=== PATIENT | female | born 2000 | race Caucasian/White ===

== ENCOUNTER 2023-01-09 17:09 | Inpatient (IN) | payer OTHER, SELFPAY ==
--- NOTE | ~2023-01-09 | CT_ITS ---
EXAMINATION: CT ABDOMEN AND PELVIS WITH CONTRAST CLINICAL INFORMATION: Lower abdominal pain. Concern for appendicitis. COMPARISON: None available. TECHNIQUE: Multidetector volumetric images were obtained from the superior aspect of the liver through the pubic symphysis following administration 85 mL of Omnipaque 350 intravenous contrast. Sagittal and coronal reformatted images were obtained on the technologist's workstation. Oral contrast: No This CT examination was performed using dose optimization techniques as appropriate, variously including the following: *Automated exposure control *Adjustment of mA and/or kV according to patient size (this includes techniques or standardized protocols for targeted exams where dose is matched to indication/reason for exam; i.e. extremities or head) *Use of iterative reconstruction technique DLP: 418 mGy-cm FINDINGS: LUNG BASES: The visualized lung bases are unremarkable. LIVER, GALLBLADDER, AND BILIARY TREE: The liver is normal in size, shape, and attenuation. No focal hepatic lesion or biliary ductal dilatation is present. The gallbladder is unremarkable with no evidence of radiopaque gallstones, gallbladder wall thickening, or obvious pericholecystic inflammatory changes. PANCREAS: Unremarkable. SPLEEN: Unremarkable. ADRENAL GLANDS: Unremarkable. KIDNEYS AND URETERS: The kidneys are normal in size, shape, and attenuation. No hydronephrosis, hydroureter, or calculi seen. No perinephric stranding. BLADDER: Unremarkable. GASTROINTESTINAL TRACT: The appendix is abnormal. The appendix is dilated to a diameter 1 cm. There is surrounding edema and fluid. Findings consistent with appendicitis. No evidence of perforation or abscess. The large bowel and small bowel in the stomach are normal. Moderate volume of stool in the colon. ABDOMINAL WALL: No significant hernia is appreciated. LYMPH NODES: Normal. VASCULAR: Unremarkable. PELVIC VISCERA: Unremarkable. OSSEOUS STRUCTURES: Unremarkable. CT/CT abdomen pelvis w IV con IMPRESSION: Appendicitis. Fleischner guidelines were followed.
[2023-01-09 18:11] VITALS: BP 107/67; PULSE 102; RESP 20; TEMP 36.5; O2SAT 99; BMI 24.8
--- NOTE | 2023-01-09 18:12 | ED_ITS ---
HPI - Abdominal Pain General Chief Complaint: Abdominal Pain Stated Complaint: abd pain Time Seen by Provider: 01/09/23 20:40 Source: patient and family (Mother) Mode of arrival: ambulatory History of Present Illness HPI narrative: 22-year-old female without significant past medical history presents with crampy lower abdominal pain that started last night then this morning became much worse and states that it is maximal in the mid lower abdomen with associated nausea, vomiting, fever, chills, discomfort on trying to have a bowel movement she otherwise denies any urinary symptoms and last ate at 11:00 this morning. Related Data Allergies Allergy/AdvReac Type Severity Reaction Status Date / Time No Known Allergies Allergy Unverified 03/11/20 19:33 [No Known Allergies*] Review of Systems Review of Systems Pertinent positives and negatives as stated in HPI PMFSH Past Medical History Source: nursing notes reviewed Social History Social History Smoked in Last 30 Days: No Use of substances other than those prescribed or required for medical reasons: No Advance Directives: No Advance Directives Information Provided: No Patient : No Physical Exam ED Vital Signs: Vital Signs - 24 hr 01/09/23 18:11 01/09/23 19:46 01/09/23 20:53 Temperature 97.7 F 99.4 F 100.1 F Pulse Rate 102 H 113 H 107 H Respiratory Rate 20 18 18 Blood Pressure 107/67 108/65 112/66 Pulse Oximetry 99 100 99 Oxygen Delivery Method Room Air Room Air Room Air 01/09/23 20:58 Temperature 100.4 F Pulse Rate Respiratory Rate Blood Pressure Pulse Oximetry Oxygen Delivery Method BMI result Body Mass Index 24.8 VITAL SIGNS: Reviewed. GENERAL: Well developed, well nourished, in no acute distress. HEAD: Normocephalic/atraumatic EYES: PERRLA, EOMI EARS: Ext canals without abnormality NOSE: Nares patent bilateral OROPHARYNX: no oral lesions noted, posterior pharynx clear NECK: Supple, no adenopathy LUNGS: Normal breath sounds. No adventitious sounds or accessory muscle use. SpO2<99> CARDIOVASCULAR: Regular rate and rhythm without noted murmurs ABDOMEN: Soft, right lower quadrant/mid lower abdominal pain on palpation, Ro vsing's negative, non-distended with bowel sounds. MUSCULOSKELETAL: No tenderness, deformities, or effusions noted on gross inspection. EXTREMITIES: No cyanosis, clubbing or edema. SKIN: Inspection of the skin reveals no rashes NEUROLOGIC: Alert and oriented x 4. Strength and sensation to light touch were grossly intact x 4. Course Course Course Narrative: This is a rapid medical exam. Deferred additional HPI, ROS, PE to primary provider. 22yo female with no known medical history here with complaints of lower abdominal pain since last evening with vomiting. LMP 2 weeks ago. NO urinary symptoms, diarrhea, constipation. WIll obtain labs, UA, ur preg VSS Medical Decision Making Medical Decision Making [facility] Narrative: 2001: 22-year-old female with history and clinical presentation, DDX: Renal colic, UTI, pyelonephritis, appendicitis. I reviewed all investigations and there is a leukocytosis and left shift without anemia or thrombocytopenia and in conjunction with patient's clinical exam and history as well as CT scan findings of appendicitis. Lactic acid and blood cultures have been ordered and antibiotics have as well. Patient is received 1 L of IV fluids and Toradol for pain. Chemistry indices are without significant findings, beta hCG is undetectable. 2104: Page out to General surgery, Dr. Alonzo 8: I discussed case with Dr Alonzo who accepts admission. Differential Diagnosis Differential Diagnoses: The differential diagnosis associated with the presentation includes Please see the discussion above Admission/Observation Consideration of admission/observation: Escalation of care including admission/observation considered Consult Healthcare Provider Management of the patient was discussed with: Animal Shelter Clerk Please see the discussion above Lab Data [facility] Lab Attestation statement: I reviewed the patient's lab results. Please see the discussion above 01/09/23 18:35 01/09/23 18:35 Labs: Lab Results 01/09/23 01/09/23 01/09/23 Range/Units 18:35 18:35 18:35 WBC 15.0 H (4.8-10.8) X10*3/uL RBC 4.84 (4.20-5.50) X10*6/uL Hgb 14.7 (12.0-16.0) g/dl Hct 44.0 (37.0-47.0) % MCV 90.9 (80.0-98.0) fL MCH 30.4 (27.0-33.0) pg MCHC 33.4 (31.0-35.0) g/dl RDW 12.4 (11.0-16.0) % Plt Count 308 (160-400) X10*3/uL MPV 11.3 (9.4-12.3) fL Immature Gran % (Auto) 0.3 (0.0-0.4) % Neut % (Auto) 92.4 H (45-73) % Lymph % (Auto) 6.6 L (20-40) % [place] % (Auto) 0.3 L (2-11) % Eos % (Auto) 0.1 (0-4) % Baso % (Auto) 0.3 (0-2) % Lymph # (Auto) 1.0 L (1.2-4.9) X10*3/uL [place] # (Auto) 0.0 L (0.1-1.2) X10*3/uL Eos # (Auto) 0.0 (0.0-0.4) X10*3/uL Baso # (Auto) 0.0 (0.0-0.2) X10*3/uL Abs Immat Gran (auto) 0.05 H (0.00-0.03) X10*3/uL Absolute Neuts (auto) 13.9 H (2.0-8.3) x10*3/uL Absolute Nucleated RBC 0.000 (0.0-0.012) X10*3/uL Nucleated RBC % (auto) 0.0 (0.0-0.2) /100WBC Smear Tech's Comments VERIFIED Sodium 138 (135-145) mmol/L Potassium 3.6 (3.3-5.1) mmol/L Chloride 106 (96-108) mmol/L Carbon Dioxide 23 (22-29) mmol/L Anion Gap 13 (12-20) BUN 12 (9-16) mg/dL Creatinine 0.79 (0.5-1.4) mg/dL Estim Creat Clear Calc 101.9 Estimated GFR > 60 Random Glucose 119 H (60-115) mg/dL Calcium 9.8 (8.4-10.2) mg/dL Total Bilirubin 0.7 (0.0-1.0) mg/dL Direct Bilirubin 0.3 (0.0-0.5) mg/dL AST 16 (5-31) U/L ALT 16 (0-31) U/L Alkaline Phosphatase 73 (39-117) U/L Total Protein 7.8 (6.5-8.0) g/dL Albumin 4.5 (3.5-5.0) g/dL Lipase 9 (8-78) U/L Beta HCG, Quant < 2 mIU/mL Radiology Impression Radiologist Impression: Acute appendicitis, otherwise my interpretation is in agreement with radiology's impression. Medications Administered Discontinued Medications Generic Name Dose Route Start Last Admin Trade Name Freq PRN Reason Stop Dose Admin Sodium Chloride 1,000 mls @ 999 mls/hr 01/09/23 19:48 01/09/23 20:13 Ns IV 01/09/23 20:48 999 mls/hr .Q1H1M STA Administration Iohexol 85 ml 01/09/23 20:45 01/09/23 20:46 Iohexol 350 Mg/Ml 100 Ml Infus..Btl IV 01/09/23 20:46 85 ml ONCE ONE Administration Ketorolac Tromethamine 15 mg 01/09/23 19:48 01/09/23 20:12 Ketorolac Tromethamine 15 Mg/Ml Vial IVPUSH 01/09/23 19:49 15 mg ONCE ONE Administration Critical Care Time Critical Care Time Critical Care Time: Yes Total Critical Care Time: 30 Attestation: I personally attest to this time spent taking care of the patient. Discharge Plan Discharge Clinical Impression: Acute appendicitis Patient Disposition: Admitted As Inpatient
[2023-01-09 18:43] LABS: Basophils Percent Auto 0.3 % (0-2); Eosinophils Percent Auto 0.1 % (0-4); Hemoglobin 14.7 g/dl (12.0-16.0); Imm Gran Abs Auto 0.05 X10*3/uL (0.00-0.03); Imm Gran Pct Auto 0.3 % (0.0-0.4); Lymphocytes Percent Auto 6.6 % (20-40); MANUAL DIFF FLAG SCAN; Mean Corpuscular HGB Conc 33.4 g/dl (31.0-35.0); Mean Corpuscular Hemoglobin 30.4 pg (27.0-33.0); Mean Corpuscular Volume 90.9 fL (80.0-98.0); Mean Platelet Volume 11.3 fL (9.4-12.3); Monocytes Percent Auto 0.3 % (2-11); Neutrophils Absolute Auto 13.9 x10*3/uL (2.0-8.3); Neutrophils Percent Auto 92.4 % (45-73); Platelet Count 308 X10*3/uL (160-400); Red Blood Count 4.84 X10*6/uL (4.20-5.50); Red Cell Distribution Width 12.4 % (11.0-16.0); SCAN SMEAR FLAG 1
[2023-01-09 19:00] LABS: Alanine Aminotransferase 16 U/L (0-31); Albumin Level 4.5 g/dL (3.5-5.0); Alkaline Phosphatase 73 U/L (39-117); Anion Gap 13 (12-20); Aspartate Amino Transferase 16 U/L (5-31); Bilirubin Direct 0.3 mg/dL (0.0-0.5); Bilirubin Total 0.7 mg/dL (0.0-1.0); Blood Urea Nitrogen 12 mg/dL (9-16); Calcium 9.8 mg/dL (8.4-10.2); Carbon Dioxide 23 mmol/L (22-29); Chloride 106 mmol/L (96-108); Creatinine Clr Calc Pharmacy 101.9; Estimated Glomerular Filt Rate > 60; Glucose Random 119 mg/dL (60-115); Lipase 9 U/L (8-78); Potassium 3.6 mmol/L (3.3-5.1); Sodium 138 mmol/L (135-145); Total Protein 7.8 g/dL (6.5-8.0)
[2023-01-09 19:01] LABS: SLIDE REVIEW VERIFIED
[2023-01-09 19:07] LABS: HCG Quantitative < 2 mIU/mL
[2023-01-09 19:46] VITALS: BP 108/65; PULSE 113; RESP 18; TEMP 37.4; O2SAT 100
--- NOTE | 2023-01-09 19:47 | MHC.EDTECH ---
Patient came in from triage pt's vitals were updated,pt was placed into hospital attire and placed on the clinical research monitor due to heart rate being elevated at 113,provider and RN aware. Attempted to get a [facility] pt is unable to at this time,will re-attempt. RN aware
[2023-01-09] MEDS: Ketorolac Tromethamine 15 MG/ML VIAL IVPUSH (20:12)
[2023-01-09] MEDS: 0.9 % Sodium Chloride 1,000 ML 999 ML IV (20:13)
[2023-01-09] MEDS: iohexoL 350 MG/ML 100 ML INFUS..BTL 85 ML IV (20:46)
--- NOTE | 2023-01-09 20:47 | MHC.EDTECH ---
Patient ambulated to bathroom to attempt to give a urine sample.
[2023-01-09 20:53] VITALS: BP 112/66; PULSE 107; RESP 18; TEMP 37.8; O2SAT 99
--- NOTE | 2023-01-09 20:54 | MHC.EDTECH ---
Patient was able to give a urine,collected and sent to lab. Vitals updated temp was 100.1 orally RN was made aware
[2023-01-09 20:58] VITALS: TEMP 38
[2023-01-09 21:13] LABS: Appearance Urine Clear; Color Urine Yellow; Glucose Urine UA Negative (Negative); Leukocyte Esterase Urine Negative (Negative); Nitrite Urine Negative (Negative); Specific Gravity - Urine >= 1.030 (1.005-1.025); Urine Blood Negative (Negative); Urine Ketones Trace mg/dL (Negative); Urine Protein Trace mg/dL (Neg-Trace)
[2023-01-09 21:15] LABS: UPreg QC Valid YES; Urine Pregnancy NEGATIVE (NEGATIVE)
--- NOTE | 2023-01-09 21:25 | MHC.EDTECH ---
Blood cultures and lactic drawn and sent to lab. Belonging list done.
[2023-01-09] MEDS: Piperacillin Sodium/Tazobactam 3.375 GM in 0.9 % Sodium Chloride 50 ML IV (21:28)
--- NOTE | 2023-01-09 21:31 | P.HPGS_ITS ---
History of Present Illness History of Present Illness Date of Service: 01/10/23 Chief complaint: Acute appendicitis Narrative: Benson Sharpe is a 22 year old female who began experiencing abd pain yesterday, then presented to the ER with leukocytosis & CT demonstrating acute appendicitis. Fevers noted by pt & in ER. The patient's mother, Anastasia, is at the bedside the patient gave permission to speak in front of her. Patient notes that her abdominal pain had relatively rapidly onset last night and she denies any personal or family history of Crohn's disease, inflammatory bowel disease or GI malignancy. She denies prior abdominal operations PMFSH Surgical History Surgical History H/O oral surgery Social History Social History Household Members: Family Housing: House Do you presently have visiting nurse or other home services: No Patient Tobacco Use Status: Never used Tobacco Smoked in Last 30 Days: No Second Hand Smoke Exposure: No Use of substances other than those prescribed or required for medical reasons: No Do you feel safe in your current relationship?: No Is there a partner from a previous relationship who is making you feel unsafe now?: No Are you made to feel afraid or neglected: No Are you DNR?: No Advance Directives: No Advance Directives Information Provided: No Advance Directives on File: No Do you have thoughts of harming others: None Do you have a plan to hurt others: No Plan Recently lost weight without trying: Unsure Eating poorly because of decreased appetite: No Nutrition Risks: No Nutritional Risk Patient : No : No Poor oral hygiene: No Meds Allergies Allergy/AdvReac Type Severity Reaction Status Date / Time No Known Allergies Allergy Unverified 03/11/20 19:33 [No Known Allergies*] Active Medications: Current Medications Hydromorphone HCl (Hydromorphone Hcl 0.5 Mg/0.5 Ml Syringe) 0.25 mg IVPUSH Q2H PRN; Protocol PRN Reason: Pain, Moderate(Pain Scale 4-6) Lactated Ringer's (Lr) 1,000 mls @ 125 mls/hr IVCONT .Q8H ROSELYN Acetaminophen (Ofirmev) 1,000 mg in 100 mls @ 400 mls/hr IV Q6H ROSELYN Stop: 01/10/23 15:44 Piperacillin Sod/Tazobactam (Sod 3.375 gm/ Sodium Chloride) 50 mls @ 100 mls/hr IV Q6H ROSELYN Ondansetron HCl (Ondansetron Hcl 4 Mg/2 Ml Vial) 4 mg IVPUSH Q8H PRN PRN Reason: Nausea and Vomiting Home Medications Medication Instructions Recorded Confirmed Last Taken Type hydroxyzine HCl 10 mg tablet 20 mg PO QID PRN anxiety 01/09/23 01/09/23 Unknown History norgestrel 0.3 mg-ethinyl 1 tab PO DAILY 01/09/23 01/09/23 01/09/23 History estradiol 30 mcg tablet (Low-Ogestrel (28)) sertraline 25 mg tablet 25 mg PO DAILY@1200 depressive 01/09/23 01/09/23 01/08/23 History disorder Physical Exam Vital Signs: Vital Signs: Last Vital Signs Temp 100.4 F 01/09/23 20:58 Pulse 107 H 01/09/23 20:53 Resp 18 01/09/23 20:53 BP 112/66 01/09/23 20:53 Pulse Ox 99 01/09/23 20:53 O2 Del Method Room Air 01/09/23 20:53 BMI result Body Mass Index 24.8 The patient is non-toxic & in good spirits NC/AT, PERRLA, EOMI Mood, affect & judgment all appear appropriate Sclera anicteric conjunctiva pink and moist Oropharynx is clear with no aphthous ulcers, Mallampati class 2, mucous membranes moist Neck is supple with no masses, adenopathy or bruits Heart is regular, normal S1-S2 no rubs or murmurs Lungs are clear and equal anteriorly with no audible wheezing, rubs or dullness to percussion Abdomen is overweight with no demonstrable hernias. The patient has right-sided lower abdominal/pelvic pain with peritoneal irritation to percussion and voluntary guarding No HSM, rebound, rigidity, guarding, masses or bruits are present. Rectal exam is deferred Skin has good turgor and is free of rashes Extremities free of cyanosis clubbing edema Results Results Labs: Short CBC 01/09/23 Range/Units 18:35 WBC 15.0 H (4.8-10.8) X10*3/uL Hgb 14.7 (12.0-16.0) g/dl Hct 44.0 (37.0-47.0) % Plt Count 308 (160-400) X10*3/uL BMP 01/09/23 18:35 Sodium 138 Potassium 3.6 Chloride 106 Carbon Dioxide 23 BUN 12 Creatinine 0.79 Calcium 9.8 Liver Function 01/09/23 Range/Units 18:35 Total Bilirubin 0.7 (0.0-1.0) mg/dL Direct Bilirubin 0.3 (0.0-0.5) mg/dL AST 16 (5-31) U/L ALT 16 (0-31) U/L Alkaline Phosphatase 73 (39-117) U/L Albumin 4.5 (3.5-5.0) g/dL Urine 01/09/23 01/09/23 Range/Units 20:57 20:57 Urine Color Yellow Urine Appearance Clear Urine pH 7.0 (5.0-9.0) Ur Specific [place] >= 1.030 H (1.005-1.025) Urine Protein Trace (Neg-Trace) mg/dL Urine Glucose (UA) Negative (Negative) mg/dL Urine Test NEGATIVE (NEGATIVE) Abdomen CT scan report/results: report reviewed and image reviewed CT scan - pelvis: report reviewed and image reviewed Assessment and Plan (1) Acute appendicitis: Status: Acute Plan See orders Admit, NPO, IVF, Zosyn Analgesics & anti-emetics Plan for lap appy 01/10 unless clinical improvement & pt declines operative recommendation Call for worsening pain not controlled by current orders ADDENDUM 0735 Options including medical treatment with antibiotics versus operative management, specifically a laparoscopic appendectomy which could possibly be open was discussed with the inherent risks of bleeding, infection, negative exploration, encountering unexpected pathology that could change the operative course, need for another procedure in the event of an issue such as bleeding or abscess. Post-op activity restrictions were also reviewed and apparently understood by the patient and her mother. The patient seemed understand and wanted to proceed with laparoscopic appendectomy, possibly open. Continue NPO and IV fluid. Zosyn Void urinary bladder family and consumer sciences professor to OR at approximately 1-2 p.m. today Time Spent With Patient Time: Total time managing care of this patient today ____ minutes. Quality Stroke Does the patient have a stroke diagnosis?: No VTE Prior VTE?: No VTE Risk Level:: Surgical - moderate VTE Device Contraindication: N/A - Device Ordered VTE Drug Contraindication: Treatment Not Indicated Procedures Date of Service Date of Service: 01/10/23
[2023-01-09 21:34] LABS: Lactic Acid 1.2 mmol/L (0.5-2.0)
--- NOTE | 2023-01-09 21:42 | PHA.MEDREC ---
Pharmacy Consult ? Medication Reconciliation Pharmacy has completed the medication reconciliation. Spoke to patient to confirm meds.
[2023-01-09] MEDS: Acetaminophen 1,000 MG/100 ML PIGGYBACK 400 MG IV (22:11)
[2023-01-09] MEDS: Lactated Ringers 1,000 ML 125 ML IVCONT (22:12)
[2023-01-10] VITALS (18 sets, daily range): BP systolic 90–129; BP diastolic 45–84; PULSE 70–108; RESP 12–20; TEMP 36.3–37.3; O2SAT 96–100
[2023-01-10] MEDS: Piperacillin Sodium/Tazobactam 3.375 GM in 0.9 % Sodium Chloride 50 ML IV ×4 (04:13→23:47)
[2023-01-10] MEDS: Acetaminophen 1,000 MG/100 ML PIGGYBACK 400 MG IV ×2 (04:13→10:14)
[2023-01-10 04:55] LABS: MANUAL DIFF FLAG NO
[2023-01-10 04:57] LABS: Basophils Percent Auto 0.2 % (0-2); Eosinophils Percent Auto 0.1 % (0-4); Hemoglobin 11.5 g/dl (12.0-16.0); Imm Gran Abs Auto 0.06 X10*3/uL (0.00-0.03); Imm Gran Pct Auto 0.4 % (0.0-0.4); Lymphocytes Absolute Auto 1.2 X10*3/uL (1.2-4.9); Lymphocytes Percent Auto 7.1 % (20-40); Mean Corpuscular HGB Conc 33.8 g/dl (31.0-35.0); Mean Corpuscular Hemoglobin 30.3 pg (27.0-33.0); Mean Corpuscular Volume 89.5 fL (80.0-98.0); Mean Platelet Volume 11.6 fL (9.4-12.3); Monocytes Absolute Auto 0.8 X10*3/uL (0.1-1.2); Monocytes Percent Auto 4.7 % (2-11); Neutrophils Absolute Auto 14.2 x10*3/uL (2.0-8.3); Neutrophils Percent Auto 87.5 % (45-73); Platelet Count 251 X10*3/uL (160-400); Red Cell Distribution Width 12.5 % (11.0-16.0); White Blood Count 16.3 X10*3/uL (4.8-10.8)
[2023-01-10 05:13] LABS: Anion Gap 12 (12-20); Blood Urea Nitrogen 9 mg/dL (9-16); Calcium 8.9 mg/dL (8.4-10.2); Carbon Dioxide 21 mmol/L (22-29); Chloride 108 mmol/L (96-108); Creatinine Clr Calc Pharmacy 134.1; Estimated Glomerular Filt Rate > 60; Glucose Random 98 mg/dL (60-115); Potassium 3.6 mmol/L (3.3-5.1); Sodium 137 mmol/L (135-145)
[2023-01-10] MEDS: Lactated Ringers 1,000 ML 125 ML IVCONT (06:02)
--- NOTE | 2023-01-10 07:31 | PC.NURSE ---
assumed care of this pt at 0700. pt a&o x4, pleasant, calm, and cooperative. pt resting quietly on stretcher in no apparent distress. mom at bedside. LR running at 125ml/hr. awaiting surgery at 9am? quantm
--- NOTE | 2023-01-10 07:33 | P.OP_ITS ---
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 Diagnostic laparoscopy confirmed duodenum appropriately position and no obstructive bands.] Indications: [The patient is a 22-year-old woman with no significant past medical history who had 24 hours of abdominal pain localizing in her pelvis, a leukocytosis, fever and CT confirming acute appendicitis. Options including medical treatment with antibiotics versus operative management, specifically a laparoscopic appendectomy which could possibly be open was discussed with the inherent risks of bleeding, infection, negative exploration, encountering unexpected pathology that could change the operative course, need for another procedure in the event of an issue such as bleeding or abscess. Activity restrictions were also reviewed and apparently understood by the patient and her mother. The patient seemed understand and wanted to proceed.] Procedure: [The patient was identified in the preoperative holding area and again in the operating room. An appropriate time-out was performed. The patient had voided bladder construction project mgr, received subcu heparin and antibiotics per protocol. Sequential compression stockings were placed. The patient was induced in general endotracheal anesthesia administered with excellent effect. The abdomen was widely prepped and draped in the usual manner for surgery. Preemptive local was used at all trocar insertion sites. The abdomen was accessed using a Veress needle. A transverse supraumbilical incision was made, the Veress needle inserted without incident, an appropriate drop test performed and a pneumoperitoneum of 15 mmHg was obtained using carbon dioxide. Opening pressures were 6 mmHg. Next, the Veress needle was withdrawn and the abdomen was accessed through the incision with a 30 degree/5 mm laparoscoped over Optiview trocar technique without incident. In examining the bowel & mesentary deep to the Veress needle, no evidence of injury was present. The remaining trocars were placed under direct laparoscopic vision with preemptive analgesia. The patient was then positioned in Trendelenburg, banked left. The patient was noted to have congenital adhesive bands from that right anterolateral abdominal wall to the right colon and the cecum was in the pelvis. Frankly bilious fluid from my perforated appendix was noted and sent for Gram stain and culture. The appendix was brought up from the pelvis into the abdominal location. The appendix was identified and tracked down to the cecum. A window was made in the mesoappendix and the mesoappendix carefully dissected using the 5 mm LigaSure [place] tip. An Endo-MONIKA 30 stapler, purple load, was placed across the appendiceal base on the cecum the and fired with good hemostasis and closure. The specimen was placed in an Endo-Catch bag and delivered through the 12 mm port in the left lower quadrant. Operative field was irrigated and inspected for hemostasis which was good. Patient was returned to neutral position, the abdomen deflated and the trocars removed. 12 mm fascia was closed with 0- Polysorb and skin closed with 4-0 Monocryl subcuticular sutures. The abdomen was washed and dried, Mastisol and Steri-Strips applied followed by Band-Aids. Patient tolerated the procedure well and was sent to the recovery in stable condition. All sponge instrument counts were correct. At the patient's request, I spoke with the patient's mother, Anastasia in the patient's room. She provided me with her cell phone [phone]. Explained that the patient will need to be in the hospital overnight regarding Gram stain and possibly longer if polymicrobial infection is identified on Gram stain since culture and speciation/sensitivities will be required. Her questions seemed to be satisfactorily answered.]
[2023-01-10] MEDS: HYDROmorphone HCl 0.5 MG/0.5 ML SYRINGE 0.25 MG IVPUSH (09:21)
--- NOTE | 2023-01-10 13:06 | HO.ANESPROP2 ---
HPI - Anesthesia Eval Consult details Narrative: 22 yo female patient for Laparoscopic appendectomy PMFSH Active Problems Active Problems: All Active Problems (Updated 01/10/23 @ 13:27 by Darcie Roberson MD) Acute appendicitis (Acute) Anxiety/Depression Family History Family history of problems with anesthesia: No Surgical History Surgical History H/O oral surgery History of Problems with Anesthesia: No Social History Social History Household Members: Family Housing: House Do you presently have visiting nurse or other home services: No Patient Tobacco Use Status: Never used Tobacco Smoked in Last 30 Days: No Second Hand Smoke Exposure: No Use of substances other than those prescribed or required for medical reasons: No Do you feel safe in your current relationship?: No Is there a partner from a previous relationship who is making you feel unsafe now?: No Are you made to feel afraid or neglected: No Are you DNR?: No Advance Directives: No Advance Directives Information Provided: No Advance Directives on File: No Do you have thoughts of harming others: None Do you have a plan to hurt others: No Plan Recently lost weight without trying: Unsure Eating poorly because of decreased appetite: No Nutrition Risks: No Nutritional Risk Patient : No : No Poor oral hygiene: No Meds Allergies Allergy/AdvReac Type Severity Reaction Status Date / Time No Known Allergies Allergy Unverified 03/11/20 19:33 [No Known Allergies*] Active Medications: Current Medications Hydromorphone HCl (Hydromorphone Hcl 0.5 Mg/0.5 Ml Syringe) 0.25 mg IVPUSH Q2H PRN; Protocol PRN Reason: Pain, Moderate(Pain Scale 4-6) Last Admin: 01/10/23 09:21 Dose: 0.25 mg Lactated Ringer's (Lr) 1,000 mls @ 125 mls/hr IVCONT .Q8H ROSELYN Last Infusion: 01/10/23 13:00 Dose: 0 mls/hr Piperacillin Sod/Tazobactam (Sod 3.375 gm/ Sodium Chloride) 50 mls @ 100 mls/hr IV Q6H ROSELYN Last Infusion: 01/10/23 11:09 Dose: Infused Acetaminophen (Ofirmev) 1,000 mg in 100 mls @ 400 mls/hr IV Q6H ROSELYN Stop: 01/10/23 16:14 Last Infusion: 01/10/23 10:41 Dose: Infused Ondansetron HCl (Ondansetron Hcl 4 Mg/2 Ml Vial) 4 mg IVPUSH Q8H PRN PRN Reason: Nausea and Vomiting Home Medications Medication Instructions Recorded Confirmed Last Taken Type hydroxyzine HCl 10 mg tablet 20 mg PO QID PRN anxiety 01/09/23 01/09/23 Unknown History norgestrel 0.3 mg-ethinyl 1 tab PO DAILY 01/09/23 01/09/23 01/09/23 History estradiol 30 mcg tablet (Low-Ogestrel (28)) sertraline 25 mg tablet 25 mg PO DAILY@1200 depressive 01/09/23 01/09/23 01/08/23 History disorder Exam Exam Date and Time: January 10, 2023 1306 Height,Weight and Vital Signs: Height 5 ft 3 in Weight 63.503 kg Last Vital Signs Temp 97.9 F 01/10/23 12:31 Pulse 87 01/10/23 12:31 Resp 16 01/10/23 12:31 BP 106/64 01/10/23 12:31 Pulse Ox 98 01/10/23 12:31 O2 Del Method Room Air 01/10/23 12:31 Pertinent Lab Results Pertinent Lab Results: Laboratory Tests 01/09/23 01/09/23 01/09/23 18:35 18:35 18:35 WBC 15.0 H RBC 4.84 Hgb 14.7 Hct 44.0 MCV 90.9 MCH 30.4 MCHC 33.4 RDW 12.4 Plt Count 308 MPV 11.3 Immature Gran % (Auto) 0.3 Neut % (Auto) 92.4 H Lymph % (Auto) 6.6 L [place] % (Auto) 0.3 L Eos % (Auto) 0.1 Baso % (Auto) 0.3 Lymph # (Auto) 1.0 L [place] # (Auto) 0.0 L Eos # (Auto) 0.0 Baso # (Auto) 0.0 Abs Immat Gran (auto) 0.05 H Absolute Neuts (auto) 13.9 H Absolute Nucleated RBC 0.000 Nucleated RBC % (auto) 0.0 Smear Tech's Comments VERIFIED Sodium 138 Potassium 3.6 Chloride 106 Carbon Dioxide 23 Anion Gap 13 BUN 12 Creatinine 0.79 Estim Creat Clear Calc 101.9 Estimated GFR > 60 Random Glucose 119 H Lactic Acid Calcium 9.8 Total Bilirubin 0.7 Direct Bilirubin 0.3 AST 16 ALT 16 Alkaline Phosphatase 73 Total Protein 7.8 Albumin 4.5 Lipase 9 Beta HCG, Quant < 2 Urine Color Urine Appearance Urine pH Ur Specific [place] Urine Protein Urine Glucose (UA) Urine Ketones Urine Blood Urine Nitrite Ur Leukocyte Esterase Urine Test 01/09/23 01/09/23 01/09/23 20:57 20:57 21:17 WBC RBC Hgb Hct MCV MCH MCHC RDW Plt Count MPV Immature Gran % (Auto) Neut % (Auto) Lymph % (Auto) [place] % (Auto) Eos % (Auto) Baso % (Auto) Lymph # (Auto) [place] # (Auto) Eos # (Auto) Baso # (Auto) Abs Immat Gran (auto) Absolute Neuts (auto) Absolute Nucleated RBC Nucleated RBC % (auto) Smear Tech's Comments Sodium Potassium Chloride Carbon Dioxide Anion Gap BUN Creatinine Estim Creat Clear Calc Estimated GFR Random Glucose Lactic Acid 1.2 Calcium Total Bilirubin Direct Bilirubin AST ALT Alkaline Phosphatase Total Protein Albumin Lipase Beta HCG, Quant Urine Color Yellow Urine Appearance Clear Urine pH 7.0 Ur Specific [place] >= 1.030 H Urine Protein Trace Urine Glucose (UA) Negative Urine Ketones Trace Urine Blood Negative Urine Nitrite Negative Ur Leukocyte Esterase Negative Urine Test NEGATIVE 01/10/23 01/10/23 04:50 04:50 WBC 16.3 H RBC 3.80 L D Hgb 11.5 L D Hct 34.0 L D MCV 89.5 MCH 30.3 MCHC 33.8 RDW 12.5 Plt Count 251 MPV 11.6 Immature Gran % (Auto) 0.4 Neut % (Auto) 87.5 H Lymph % (Auto) 7.1 L [place] % (Auto) 4.7 Eos % (Auto) 0.1 Baso % (Auto) 0.2 Lymph # (Auto) 1.2 [place] # (Auto) 0.8 Eos # (Auto) 0.0 Baso # (Auto) 0.0 Abs Immat Gran (auto) 0.06 H Absolute Neuts (auto) 14.2 H Absolute Nucleated RBC 0.000 Nucleated RBC % (auto) 0.0 Smear Tech's Comments Sodium 137 Potassium 3.6 Chloride 108 Carbon Dioxide 21 L Anion Gap 12 BUN 9 Creatinine 0.60 Estim Creat Clear Calc 134.1 Estimated GFR > 60 Random Glucose 98 Lactic Acid Calcium 8.9 D Total Bilirubin Direct Bilirubin AST ALT Alkaline Phosphatase Total Protein Albumin Lipase Beta HCG, Quant Urine Color Urine Appearance Urine pH Ur Specific [place] Urine Protein Urine Glucose (UA) Urine Ketones Urine Blood Urine Nitrite Ur Leukocyte Esterase Urine Test Airway Mallampati Class: II TM Dist: >3cm Neck ROM: Full Partial: Upper Heart: RRR Lungs: CTAB Assessment and Plan Assessment Anesthesia Assessment: Anesthesia Plan Discussed and Chart Reviewed Final Anesthetic Review Family History of Problems with Anesthesia: No History of Problems with Anesthesia: No NPO: Yes ASA Class: II and Emergency Final Preanesthetic Review: No Changes in Pt Med Stat, Meds/Allgs Chart Reviewed, Consent Obtained/Reviewed and Anes Risks/Benef Reviewed Patient Risk: Low Procedure Risk: Low Assessment/Block/Sedation in SS: Assess/Block/Sedation- Anesthetic Plan Anesthetic Plan: GA Disposition: Standard PACU and Inp. Admit - Standard Bed
--- NOTE | 2023-01-10 15:25 | PM.OP ---
Brief Operative Note Date of Service: 01/10/23 Pre-op diagnosis: Acute appendicitis Post-op diagnosis: other (Perforated appendicitis; incomplete rotation) Procedure: Laparoscopic appendectomy with lysis of adhesions Surgeon: Tesfaye Alonzo MD, FACS Anesthesia: GETA Was an Upholstery Covers Inspector used for this Procedure?: Yes Upholstery Covers Inspector: Cristina Vasquez Estimated blood loss (mL): 3 Pathology: other Condition: stable Disposition: PACU
[2023-01-10] MEDS: Ketorolac Tromethamine 15 MG/ML VIAL IVPUSH (15:57)
--- NOTE | 2023-01-10 17:35 | PC.NURSE ---
Pt returned from surgery. Resting comfortably. no complains of pain. Mother was given permission to stay the night w the patient by switch operators supervisor su espinoza
[2023-01-10] MEDS: Lactated Ringers 1,000 ML 100 ML IVCONT (18:14)
[2023-01-10] MEDS: Acetaminophen 325 MG TABLET 975 MG PO (20:20)
[2023-01-10] MEDS: Docusate Sodium 100 MG CAPSULE 200 MG PO (22:14)
[2023-01-11] MEDS: Lactated Ringers 1,000 ML 100 ML IVCONT (03:48)
[2023-01-11] MEDS: Ibuprofen 400 MG TABLET PO (03:52)
[2023-01-11 04:00] VITALS: BP 102/58; PULSE 78; RESP 16; TEMP 36; O2SAT 97
[2023-01-11] MEDS: Piperacillin Sodium/Tazobactam 3.375 GM in 0.9 % Sodium Chloride 50 ML IV ×2 (05:30→11:27)
[2023-01-11] MEDS: Acetaminophen 325 MG TABLET 975 MG PO (05:34)
[2023-01-11] MEDS: oxyCODONE HCl Immed Release 5 MG TABLET PO (05:35)
[2023-01-11 05:43] LABS: MANUAL DIFF FLAG NO
[2023-01-11 05:50] LABS: Basophils Percent Auto 0.1 % (0-2); Hematocrit 32.4 % (37.0-47.0); Hemoglobin 10.9 g/dl (12.0-16.0); Imm Gran Abs Auto 0.05 X10*3/uL (0.00-0.03); Imm Gran Pct Auto 0.4 % (0.0-0.4); Lymphocytes Percent Auto 8.8 % (20-40); Mean Corpuscular HGB Conc 33.6 g/dl (31.0-35.0); Mean Corpuscular Hemoglobin 30.4 pg (27.0-33.0); Mean Corpuscular Volume 90.5 fL (80.0-98.0); Mean Platelet Volume 12.3 fL (9.4-12.3); Monocytes Absolute Auto 0.7 X10*3/uL (0.1-1.2); Neutrophils Absolute Auto 9.7 x10*3/uL (2.0-8.3); Neutrophils Percent Auto 84.7 % (45-73); Platelet Count 221 X10*3/uL (160-400); Red Blood Count 3.58 X10*6/uL (4.20-5.50); Red Cell Distribution Width 12.6 % (11.0-16.0); White Blood Count 11.4 X10*3/uL (4.8-10.8)
[2023-01-11 06:15] LABS: Anion Gap 11 (12-20); Blood Urea Nitrogen 5 mg/dL (9-16); Calcium 9.2 mg/dL (8.4-10.2); Carbon Dioxide 22 mmol/L (22-29); Chloride 108 mmol/L (96-108); Creatinine Clr Calc Pharmacy 123.8; Estimated Glomerular Filt Rate > 60; Glucose Random 116 mg/dL (60-115); Potassium 3.8 mmol/L (3.3-5.1); Sodium 137 mmol/L (135-145)
[2023-01-11 07:24] VITALS: BP 116/64; PULSE 76; RESP 18; TEMP 36.2; O2SAT 97
[2023-01-11] MEDS: Docusate Sodium 100 MG CAPSULE 200 MG PO (08:47)
--- NOTE | 2023-01-11 09:37 | MHC.CM.PN ---
This health science writer met with patient for CM assessment. From home no services prior to D/C. PCP verified. D/C plan- home no services. Family to transport.
--- NOTE | 2023-01-11 09:51 | HO.POSTANES ---
Post Anesthesia Evaluation Post Anesthesia Evaluation Date of Service: 01/11/23 Vital Signs: Vital Signs Temp Pulse Resp BP Pulse Ox O2 Del Method 01/11/23 07:24 97.2 F 76 18 116/64 97 Room Air 01/11/23 04:00 96.8 F 78 16 102/58 L 97 Room Air Anesthesia: General Endotracheal-GETA Mental Status: Awake Pain Control: Satisfactory Nausea/Vomiting: None Hydration: Adequate Anesthesia-Related Issues: No Anes. Related Issues
--- NOTE | 2023-01-11 13:43 | P.DS_ITS ---
DS: Providers Provider Date of Service: 01/11/23 Date of admission: 01/09/23 21:25 Primary care physician: Nelson Gimenez MD Consults: 01/09/23 21:19 Consult to General Surgery Stat Consulting Provider[place] [facility] Reason for consultation: acute appendicitis Has provider been notified: Yes DS: Diagnosis Discharge Diagnosis (1) Acute appendicitis: Status: Acute DS: Summary Hospital Course Hospital Course: See H&P for full details. Briefly, this 22-year-old woman with no significant past medical history presented with appendicitis based on CT and exam. Intraoperatively, she was noted to be incompletely rotated and had congenital adhesions that were lysed at the time of surgery. In addition, laparoscopic appendectomy for perforated appendicitis was performed. Intraperitoneal fluid Gram stain showed no organisms, and by the day of discharge, the patient was tolerating a regular diet, had been afebrile. She is discharged in improved condition. Time Spent with Patient Time attestation: Total time managing care of this patient today ____ minutes. Discharge coordination time: Less than 30 minutes Quality: Safe Use of Opioids Does Pt have an Active Cancer Diagnosis on the Problem List?: No Quality: Stroke Does the patient have a stroke diagnosis?: No Physical Exam Vital Signs: Vital Signs: Last Vital Signs Temp 97.2 F 01/11/23 07:24 Pulse 76 01/11/23 07:24 Resp 18 01/11/23 07:24 BP 116/64 01/11/23 07:24 Pulse Ox 97 01/11/23 07:24 O2 Del Method Room Air 01/11/23 07:24 O2 Flow Rate 4 01/10/23 17:09 BMI result Body Mass Index 24.8 DS: Data Data Completed and Pending Pending studies at discharge: Pending at discharge 01/10/23 14:48 Surgical [PTH] Routine Labs on day of discharge: Laboratory Results - last 24 hr 01/11/23 01/11/23 05:30 05:30 WBC 11.4 H RBC 3.58 L Hgb 10.9 L Hct 32.4 L MCV 90.5 MCH 30.4 MCHC 33.6 RDW 12.6 Plt Count 221 MPV 12.3 Immature Gran % (Auto) 0.4 Neut % (Auto) 84.7 H Lymph % (Auto) 8.8 L [place] % (Auto) 6.0 Eos % (Auto) 0.0 Baso % (Auto) 0.1 Lymph # (Auto) 1.0 L [place] # (Auto) 0.7 Eos # (Auto) 0.0 Baso # (Auto) 0.0 Abs Immat Gran (auto) 0.05 H Absolute Neuts (auto) 9.7 H Absolute Nucleated RBC 0.000 Nucleated RBC % (auto) 0.0 Sodium 137 Potassium 3.8 Chloride 108 Carbon Dioxide 22 Anion Gap 11 L BUN 5 L Creatinine 0.65 Estim Creat Clear Calc 123.8 Estimated GFR > 60 Random Glucose 116 H Calcium 9.2 Preliminary micro results at discharge 01/10/23 Unknown Anaerobic Culture - Preliminary Peritoneal Fluid No growth to date. Body Fluid Culture - Preliminary No growth to date. 01/09/23 21:23 Blood Culture - Preliminary Blood - Venous No growth after 24 hours. 01/09/23 21:17 Blood Culture - Preliminary Blood - Venous No growth after 24 hours. Discharge Plan Discharge Anticipated Discharge Date/Time: 01/11/23 13:39 Patient Disposition: Home, Self-Care Discharge Diagnosis: perforated appendicitis, congenital malrotation Referrals: Nelson Gimenez MD [Primary Care Provider] - 1 Week Tesfaye Alonzo MD [Physician] - 1 Week Discharge Medications: New oxycodone 5 mg tablet 5 mg PO Q4H PRN (Reason: pain) Qty: 20 0RF Rx Instructions: Partial Fill upon patient request. amoxicillin-pot clavulanate 875-125 mg tablet 1 tab PO BID Qty: 10 0RF Rx Instructions: start tonight 01/11 at 7pm docusate sodium 100 mg Capsule 200 mg PO BID Qty: 30 0RF Continued Low-Ogestrel (28) 0.3-30 mg-mcg tablet 1 tab PO DAILY sertraline 25 mg tablet 25 mg PO DAILY@1200 hydroxyzine HCl 10 mg tablet 20 mg PO QID PRN (Reason: anxiety) Discharge Orders: Discharge Order (Routine); Ordered 01/11/23 Ordered By: Tesfaye Alonzo Diet: Advance to usual diet Activity on Discharge: No heavy lifting Stand Alone Forms: Patient Portal Discharge page Activity Restrictions/Additional Instructions: You had a laparoscopic appendectomy performed by Dr. Alonzo. It is normal to feel some minor abdominal discomfort due to the gas from the operation, however if you develop severe pain in your abdomen or chest, fevers over 100F, vomiting and are unable to keep liquids down, you should contact Dr. Alonzo or report to the nearest emergency department. If your incisions become red, swollen and tender, draining pus or have problems, please contact Dr. Alonzo report to the nearest emergency department. If you have bandages on your incisions, leave them in place for 48 hours, then remove them. You can shower but not soak in a tub after removing the bandages. If there are paper tapes known as butterflies/Steri-Strips, leave them fall off on their own in 1-2 weeks. You do not need to put another bandage on your incisions unless your clothing rubs and irritates your incisions. You can shower after you removed your bandages in 48 hours, but do not soak in a tub, go in a pool, or go swimming in a [place] pond or ocean. Please let the paper tapes to dry after getting them wet. You do not need to replace a bandage on lesser clothing irritates the incision. You may find that pants with an elastic waist like gym cloths or suspenders are more comfortable than pants requiring a belt until your incisions completely heal. Because of the operation, you should not lift more than 20 lb for the next 4 weeks. Any strenuous activity such as lifting more than 20 lb, digging, yoga, any athletic activity, like running, soccer, or other strenuous activity, lifting heavy bags/groceries, swimming, martial arts, or other strenuous athletic activities can cause hernias. If you have any questions regarding a specific activity, please ask Dr. Alonzo. Avoiding strenuous activities will mi nimize the risk of incisional hernias. At your 1 week post-op office visit, Dr. Alonzo will discuss returning to work on light duty with you. Since you can perform light duty, you are not disabled, but your employer may not allow you to return until you have no restrictions; it is up to you to discuss this issue, as we cannot disclose personal information. Please bring any paperwork to that follow-up appointment from your employer. Please note that you are not disabled and need to discuss your work restrictions for medical reasons with your employer. If you do not have a follow-up post-op visit, call [phone] to schedule one, or call with questions. If you were prescribed an antibiotic, continue taking the medication as prescribed. The anesthesia from the operation and pain medicine will cause constipation. You can purchase [id number] stool softener known as Colace/docusate, 100 mg and take 2 tablets in the morning with breakfast and 2 tablets in the evening after dinner to minimize this problem. Even if you are not taking narcotics, the anesthesia can cause constipation. Unless you have a medical reason, you should take [id number] Tylenol/acetaminophen, 2 tablets with ahcm-tro-hgvhvci ibuprofen, 2 tablets, every 6 hours to help with pain. Add the narcotic pain medicine if you are still having pain. Ice packs are also allowed to minimize pain and swelling. You should eat a high-protein, high-fiber, low-fat diet to optimize healing. Please resume any preoperative medications unless otherwise directed by Dr. Alonzo. Please contact your primary care provider for a follow-up appointment in 2 weeks. Care Plan Goals: Allow adequate healing Health Concerns: Allow adequate healing Plan of Treatment: Healthy diet high in protein to allow adequate healing Complete antibiotic course over 5 days Assessment: Perforated appendicitis
== END 2023-01-11 15:02 | disposition home or self-care (01) | DRG 224 ==
LOC: HO.ED 21:21 → HO.EDOVER 21:29 → HO.S3 01-10 07:51
PROVIDERS: Nurse Practitioner Family; Admitting Provider Surgery; Emergency Provider Student in an Organized Health Care Education/Training Program; PCP Pediatrics; Visit Provider Surgery
PROC: 0DTJ4ZZ Resection of Appendix, Percutaneous Endoscopic Approach (ICD-10-PCS; CPT 44970; principal; 2023-01-10 13:10)
DX: K35.32 Acute appendicitis with perforation, localized peritonitis, and gangrene, without abscess (principal); Q43.3 Congenital malformations of intestinal fixation; Z79.899 Other long term (current) drug therapy
CPT/HCPCS: 36415; 74177; 80048; 80076; 81003; 81025; 83605; 83690; 84702; 85025; 87040; 87070; 87073; 87076; 87185; 87205; 88304; 99285; J0131; J1100; J1170; J1885; J2250; J2405; J2543; J2550; J3010; Q9967

== ENCOUNTER → 2023-01-09 21:25 | Outpatient (BNV) | payer OTHER, SELFPAY | PROVIDERS: Admitting Provider Surgery; Emergency Provider Student in an Organized Health Care Education/Training Program; PCP Pediatrics; Visit Provider Surgery | DX: K35.80 Unspecified acute appendicitis (principal) | CPT/HCPCS: 44970; 99238; 99284 ==

== ENCOUNTER 2023-01-17 10:30 | Outpatient (AMB) | payer OTHER, SELFPAY ==
--- NOTE | 2023-01-17 10:33 | MHC.OFFVIS ---
Intake Vital Signs 01/17/23 10:45 Height 5 ft 3 in Weight 139 lb BMI 24.6 BP 119/77 Blood Pressure Location Lt brachial Position Sitting Pulse 86 Intake Visit Reasons: post appendectomy Intake Note: Patient is seen in office for post op assessment post laparsocopic appendectomy. Patient c/o: denies any concerns at the time of visit, healing as expected Flame Cutting Supervisor Required: No Accompanied by: Family/Other Allergies No Known Allergies [No Known Allergies*] Allergy (Unverified 01/17/23 10:44) HPI HPI Comments History of Present Illness Details The patient comes to the office for follow-up after a laparoscopic appendectomy & MANPREET (for incomplete rotation related congenital adhesions) 01/10/23 for perforated acute appendicitis. While her intraoperative findings showed perforation in fluid in the pelvis, the cultures were negative, however Micromonas sps. was identified and a blood culture bottle. The patient was discharged on Augmentin reports that she is doing well with no fevers, chills. She does report some vaginal itching and we discussed the use of [id number] Monistat 7. Her bowels are working well and she is noted no issues with constipation or diarrhea. She otherwise denies interval change. Patient's mother is in the room and states that she spoke with the patient's employer. A work note releasing the patient to return to work on light duty this coming Sunday with restricted light duty until February 07 will be provided. [facility] Surgical History (Updated 01/16/23 @ 10:55 by SHERRI Gallagher) H/O oral surgery History of laparoscopic appendectomy (01/10/23) Social History Household Members: Family Housing: House Do you presently have visiting nurse or other home services: No Patient Tobacco Use Status: Never used Tobacco Second Hand Smoke Exposure: No service: No Physical Exam On exam, she is nontoxic She is in good spirits Her abdomen is soft with no tenderness. Incisions are healing well and Steri-Strips are starting to slough. No incisional hernias are present. Results Reviewed Results Reviewed: Pathology confirmed appendicitis with no neoplasia/malignancy Assessment & Plan Assessment & Plan (1) Acute appendicitis: Code(s): K35.80 - Unspecified acute appendicitis Plan Instructions regarding activity reviewed and apparently understood. Patient was provided with a work note allowing her to to return to work on Sunday, 01/22 with restricted duty/light duty until Sunday, February 07. Patient will obtain Monistat 7 regarding her vaginal itching symptoms and call me if there are any questions or concerns. Using a teaching director law enforcement, we reviewed her incomplete rotation and congenital right colon adhesions that required lysis of adhesions. The theoretical increased risk for cecal volvulus was discussed and apparently understood. Coding Level of Care Code Global (70199) Diagnoses Acute appendicitis K35.80
[2023-01-17 10:45] VITALS: BP 119/77; PULSE 86; BMI 24.6
== END 2023-01-17 11:06 | disposition home or self-care (01) ==
PROVIDERS: PCP Pediatrics; Visit Provider Surgery
DX: K35.80 Unspecified acute appendicitis (principal)
CPT/HCPCS: 99024

== ENCOUNTER → 2023-01-17 10:30 | Outpatient (BNVA) | payer OTHER, SELFPAY | PROVIDERS: PCP Pediatrics; Visit Provider Surgery ==